=== PATIENT | female | born 1990 | race African-American/Black ===

== ENCOUNTER 2016-12-20 12:54 | Emergency (ER) | payer OTHER ==
[~2016-12-20] VITALS: Ht 160 cm; Wt 79.5 kg
[2016-12-20 13:15] VITALS: BP 105/62
--- NOTE | 2016-12-20 14:08 | PHYS DOC ---
General Chief Complaint: MEDICATION REFILL Stated Complaint: MEDICATION REFILL Time Seen by MD: 13:03 Source: patient Exam Limitations: no limitations Problems: History of Present Illness Initial Comments This is a 26-year-old female with history of anxiety and bipolar disorder who comes to the ED requesting refill. Patient states that she just moved here and has an appointment to establish with a primary care next week. She has an empty prescription bottle for Paxil 20 mg she says she has taken for years. She has been out of medication for several days and is complaining of lethargy, headache, vision changes. This is happened in the past when she has run out of medication and she has, hoping we would refill her until she can get in with her new doctor. ED vital signs are stable Timing/Duration: 24 hours, getting worse Severity: moderate Modifying Factors: improves with medication (L) Associated Symptoms: headaches, malaise, other Allergies: Coded Allergies: No Known Drug Allergies (Unverified , 12/20/16) Past Medical History Medical History: other (anxiety, bipolar, depression) Surgical History: noncontributory Social History Smoker: cigarettes Alcohol: none Drugs: none Review of Systems Constitutional: denies chills, denies diaphoresis, denies fever, malaise EENTM: see HPI Respiratory: denies cough, denies shortness of breath, denies wheezing Cardiovascular: denies chest pain, denies palpitations, denies syncope Gastrointestinal: denies diarrhea, denies nausea, denies vomiting Genitourinary: denies dysuria, denies frequency, denies hematuria Musculoskeletal: denies back pain, denies joint swelling, denies neck pain Psychiatric/Neurological: see HPI Physical Exam General Appearance: no apparent distress, obese Eyes: bilateral eye normal inspection, bilateral eye PERRL, bilateral eye EOMI Ear, Nose, Throat: hearing grossly normal, normal ENT inspection Neck: non-tender, supple Respiratory: normal breath sounds, no respiratory distress Extremities: normal range of motion, non-tender 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 She was advised to stop smoking. I discussed medication refills and the emergency department. Patient is aware that refills were not routinely given in the emergency Department but due to withdrawal symptoms we'll refill her until she can get in with her doctor. She agrees to follow-up with her new doctor next week as scheduled. Departure Time of Disposition: 14:06 Disposition: 01 HOME, SELF-CARE Diagnosis: serotonin syndrome, bipolar/anxiety history Condition: STABLE Patient Instructions: Serotonin Syndrome Additional Instructions: Prescription: Paxil 20 mg quantity 7 Follow-up and establish with your new doctor as scheduled. Return to ED with new or changing symptoms. ARTEM ROSENBAUM DO Dec 20, 2016 14:08
[2016-12-20] MEDS ORDERED: PARO20TA99 PO (14:09)
== END 2016-12-20 14:16 | disposition home or self-care (01) ==
LOC: ER 12:54
DX: G25.79 Other drug induced movement disorders (principal); F31.9 Bipolar disorder, unspecified; F41.9 Anxiety disorder, unspecified; F17.210 Nicotine dependence, cigarettes, uncomplicated
CPT/HCPCS: 99283

== ENCOUNTER 2020-06-14 15:19 | Emergency (ER) | payer MEDICAID, OTHER ==
[~2020-06-14] VITALS: Ht 160 cm; Wt 65.9 kg
[~2020-06-14 15:19] MED LIST: PARO20TA99 PO
[2020-06-14 15:30] VITALS: BP 116/77
[2020-06-14] MEDS ORDERED: KETOROLAC 15 MG/ML VIAL. IVP ONE (15:45)
[2020-06-14] MEDS ORDERED: IV NORMAL SALINE 1,000ML 1,000 ML IV ONE (15:45)
[2020-06-14 16:30] LABS: BASO % 1 % (0-3); EOS # 0.3 x10^3/uL (0.0-0.7); EOS % 4 % (0-3); HEMATOCRIT 24.9 % (36.0-47.0); HEMOGLOBIN 7.1 g/dL (12.0-15.5); LYMPH # 1.5 x10^3/uL (1.0-4.8); LYMPH % 16 % (24-48); MEAN CORPUSCULAR HEMOGLOBIN 16 pg (25-35); MEAN CORPUSCULAR HGB CONC 29 g/dL (31-37); MEAN CORPUSCULAR VOLUME 57 fL (79-100); MONO # 0.5 x10^3/uL (0.0-1.1); MONO % 6 % (0-9); NEUT # 7.1 x10^3uL (1.8-7.7); NEUT % 74 % (31-73); PLATELET COUNT 230 x10^3/uL (140-400); RED BLOOD COUNT 4.34 x10^6/uL (3.50-5.40); RED CELL DISTRIBUTION WIDTH 21.7 % (11.5-14.5); WHITE BLOOD COUNT 9.5 x10^3/uL (4.0-11.0)
[2020-06-14 16:42] LABS: CALCIUM 8.7 mg/dL (8.5-10.1); CREATININE 0.7 mg/dL (0.6-1.0); GFR 119.7
[2020-06-14 16:48] LABS: ALBUMIN 3.6 g/dL (3.4-5.0); ALBUMIN/GLOBULIN RATIO 0.9 (1.0-1.7); TOTAL BILIRUBIN 0.4 mg/dL (0.2-1.0); TOTAL PROTEIN 7.5 g/dL (6.4-8.2)
[2020-06-14] MEDS ORDERED: IRON15TA3 PO (17:06)
--- NOTE | 2020-06-14 17:06 | PHYS DOC ---
Past History Past Medical History: Anxiety, Bipolar, Depression Past Surgical History: No Surgical History Alcohol Use: Occasionally Drug Use: None General Adult EDM: Chief Complaint: HEADACHE HPI: HPI: Patient is a 30-year-old female coming with 3 days of bandlike headache. States the pain is pressure-like. Denies any vision changes, photophobia, nausea vomiting, fevers, neck pain or stiffness. Patient does not have his history of headaches but says she has been congested recently. Denies any recent or remote history of head trauma. Has not taken anything at home. Patient states she is had decreased p.o. intake and not been drinking many fluids today. Review of Systems: Review of Systems: All other systems within normal limits except for as noted in the HPI Current Medications: Current Meds: Current Medications Medications (Trade) Dose Ordered Sig/Jorgito Start Time Stop Time Status Last Admin Dose Admin Ketorolac Tromethamine (Toradol 15mg Vial) 15 mg 1X ONCE 06/14/20 15:45 06/14/20 15:58 DC 06/14/20 15:54 15 MG Sodium Chloride 1,000 ml @ 1,000 mls/hr 1X ONCE 06/14/20 15:45 06/14/20 16:44 DC 06/14/20 15:54 1,000 MLS/HR Allergies: Allergies: Allergies Coded Allergies Type Severity Reaction Last Updated Verified No Known Drug Allergies 12/20/16 No Physical Exam: PE: Constitutional: Well developed, well nourished, no acute distress, non-toxic appearance. [] HENT: Normocephalic, atraumatic, bilateral external ears normal, nose normal. [] Eyes: PERRLA, EOMI, conjunctiva normal, no discharge. [] Neck: No rigidity, supple, no stridor. [] Cardiovascular: Regular rate and rhythm, brisk cap refill [] Lungs & Thorax: Non labored symmetric respirations, no tachypnea or respiratory distress [] Abdomen: Soft, nondistended. Skin: Warm, dry, no erythema, no rash. [] Back: Unremarkable Extremities: No deformities, range of motion grossly intact, no lower extremity edema [] Neurologic: Alert and oriented X 3, no focal deficits noted, cranial nerves intact. [] Psychologic: Affect normal, judgement normal, mood normal. [] Current Patient Data: Labs: Laboratory Tests Test 06/14/20 15:56 White Blood Count 9.5 x10^3/uL (4.0-11.0) Red Blood Count 4.34 x10^6/uL (3.50-5.40) Hemoglobin 7.1 g/dL (12.0-15.5) L Hematocrit 24.9 % (36.0-47.0) L Mean Corpuscular Volume 57 fL (79-100) L Mean Corpuscular Hemoglobin 16 pg (25-35) L Mean Corpuscular Hemoglobin Concent 29 g/dL (31-37) L Red Cell Distribution Width 21.7 % (11.5-14.5) H Platelet Count 230 x10^3/uL (140-400) Neutrophils (%) (Auto) 74 % (31-73) H Lymphocytes (%) (Auto) 16 % (24-48) L Monocytes (%) (Auto) 6 % (0-9) Eosinophils (%) (Auto) 4 % (0-3) H Basophils (%) (Auto) 1 % (0-3) Neutrophils # (Auto) 7.1 x10^3uL (1.8-7.7) Lymphocytes # (Auto) 1.5 x10^3/uL (1.0-4.8) Monocytes # (Auto) 0.5 x10^3/uL (0.0-1.1) Eosinophils # (Auto) 0.3 x10^3/uL (0.0-0.7) Basophils # (Auto) 0.0 x10^3/uL (0.0-0.2) Sodium Level 142 mmol/L (136-145) Potassium Level 4.0 mmol/L (3.5-5.1) Chloride Level 105 mmol/L (98-107) Carbon Dioxide Level 25 mmol/L (21-32) Anion Gap 12 (6-14) Blood Urea Nitrogen 15 mg/dL (7-20) Creatinine 0.7 mg/dL (0.6-1.0) Estimated GFR (Cockcroft-Gault) 119.7 BUN/Creatinine Ratio 21 (6-20) H Glucose Level 82 mg/dL (70-99) Calcium Level 8.7 mg/dL (8.5-10.1) Total Bilirubin Pending Aspartate Amino Transferase (AST) Pending Alanine Aminotransferase (ALT) Pending Alkaline Phosphatase Pending Total Protein Pending Albumin Pending Albumin/Globulin Ratio Pending Vital Signs: Vital Signs Date Time Temp Pulse Resp B/P (MAP) Pulse Ox O2 Delivery O2 Flow Rate FiO2 06/14/20 15:30 97.9 86 18 116/77 (90) 100 EKG: EKG: [] Radiology/Procedures: Radiology/Procedures: [] Heart Score: Risk Factors: Risk Factors: DM, Current or recent (<one month) smoker, HTN, HLP, family history of CAD, obesity. Risk Scores: Score 0 - 3: 2.5% MACE over next 6 weeks - Discharge Home Score 4 - 6: 20.3% MACE over next 6 weeks - Admit for Clinical Observation Score 7 - 10: 72.7% MACE over next 6 weeks - Early Invasive Strategies Course & Med Decision Making: Course & Med Decision Making Pertinent Labs and Imaging studies reviewed. (See chart for details) [] Dragon Disclaimer: Dragon Disclaimer: This electronic medical record was generated, in whole or in part, using a voice recognition dictation system. Departure Departure: Impression: Primary Impression: Headache Additional Impression: Microcytic anemia Disposition: 01 DC HOME SELF CARE/HOMELESS Condition: STABLE Referrals: JUAN ZUÑIGA MD (PCP) Patient Instructions: Anemia, FAQs Scripts Iron,Carbonyl (IRON CHEWS) 15 Mg Tab.chew 2 TAB PO BID for anemia for 30 Days, #120 TAB 0 Refills Prov: KALA MERCEDES MD 06/14/20 KALA MERCEDES MD Jun 14, 2020 17:06
[2020-06-14 21:19] LABS: ANISOCYTOSIS MOD; HYPOCHROMIA MARKED; MICROCYTOSIS MARKED
[2020-06-14 21:20] LABS: PLT ESTIMATE ADEQUATE (ADEQUATE)
== END 2020-06-14 17:30 | disposition home or self-care (01) ==
LOC: ER 15:19
DX: D50.9 Iron deficiency anemia, unspecified (principal); R51.9 Headache, unspecified; F41.9 Anxiety disorder, unspecified; F31.9 Bipolar disorder, unspecified
CPT/HCPCS: 36415; 80053; 85025; 96361; 96374; 99283; J1885; J7030

== ENCOUNTER 2020-07-03 14:49 | Emergency (ER) | payer MEDICAID ==
[~2020-07-03] VITALS: Ht 160 cm; Wt 66.0 kg
[~2020-07-03 14:49] MED LIST changes: +IRON15TA3 PO
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
[2020-07-03] MEDS ORDERED: HYDROcodone/APAP 5/325MG 1 TAB TABLET PO ONE (15:15)
--- NOTE | 2020-07-03 15:43 | RAD ---
XR HAND_RIGHT 3 VIEWS History: Reason: BLUNT TRAUMA, HAND PAIN / Spl. Instructions: / History: Comparison: None. Technique: 3 views of the right hand Findings: There is no evidence for fracture. Alignment is normal. No destructive osseous lesions are seen. Joint spaces are preserved. Soft tissues are normal. Impression: 1. No acute osseous abnormality of the right hand. Electronically signed by: Lamin Phan MD (07/03/2020 3:41 PM) [facility]
[2020-07-03] MEDS ORDERED: IBUP600T16 PO (16:06)
== END 2020-07-03 16:15 | disposition home or self-care (01) ==
LOC: ER 14:49
DX: S60.221A Contusion of right hand, initial encounter (principal); F41.9 Anxiety disorder, unspecified; F32.9 Major depressive disorder, single episode, unspecified; Y08.89XA Assault by other specified means, initial encounter; Y93.89 Activity, other specified; Y92.89 Other specified places as the place of occurrence of the external cause; Y99.8 Other external cause status
CPT/HCPCS: 73130; 99283

== ENCOUNTER 2021-05-17 19:21 | Emergency (ER) | payer MEDICAID ==
[~2021-05-17] VITALS: Ht 160 cm; Wt 82.1 kg
[~2021-05-17 19:21] MED LIST changes: +IBUP600T16 PO
--- NOTE | 2021-05-17 19:41 | PHYS DOC ---
Past History Past Medical History: No Pertinent History Past Surgical History: No Surgical History Alcohol Use: Rarely Drug Use: None General Adult HPI: HPI: ".. I ve been vomiting tonight... twice... No bad food.. ..just sick.... I can't be ..." Patient is a 31 year old female who presents with above hx anbd complaints of nausea and vomiting x2 tonight. No recent travel. No specific ill contacts. No intake bad food. Has not gotten flu vaccination. Has not gotten Taboola. No specific ill contacts. No histamine suppression. Patient is accompanied with her mother. Review of Systems: Review of Systems: Constitutional: Denies fever or chills Eyes: Denies change in visual acuity HENT: Denies nasal congestion or sore throat Respiratory: Denies cough or shortness of breath Cardiovascular: Denies chest pain or edema GI: Complains of nausea, vomiting,. Denies bloody stools or diarrhea : Denies dysuria Musculoskeletal: Denies back pain or joint pain Integument: Denies rash Neurologic: Denies headache, focal weakness or sensory changes Endocrine: Denies polyuria or polydipsia Lymphatic: Denies swollen glands Psychiatric: Denies depression or anxiety Family History: Family History: See nursing for home meds Current Medications: Current Meds: See nursing for home meds Allergies: Allergies: Allergies Coded Allergies Type Severity Reaction Last Updated Verified No Known Drug Allergies 12/20/16 No Physical Exam: PE: Constitutional: Moderate acute distress, non-toxic appearance. [] HENT: Normocephalic, atraumatic, bilateral external ears normal, oropharynx moist, no oral exudates, nose normal. [] Eyes: PERRLA, EOMI, conjunctiva normal, no discharge. [] Neck: Normal range of motion, no tenderness, supple, no stridor. [] Cardiovascular:Heart rate regular rhythm, no murmur [] Lungs & Thorax: Bilateral breath sounds equal apex auscultation [] Abdomen: Bowel sounds hyperactive, soft, epigastric tenderness, no masses, no pulsatile masses. [] Obese. No focal areas of rebound Skin: Warm, dry, no erythema, no rash. [] Back: No tenderness, no CVA tenderness. [] Extremities: No tenderness, no cyanosis, no clubbing, ROM intact, no edema. [] No psoas sign. Neurologic: Alert and oriented X 3, normal motor function, normal sensory function, no focal deficits noted. [] Psychologic: Affect anxious,, judgement normal, mood normal. [] EKG: EKG: [] Radiology/Procedures: Radiology/Procedures: [] Heart Score: C/O Chest Pain: N/A Risk Factors: Risk Factors: DM, Current or recent (<one month) smoker, HTN, HLP, family history of CAD, obesity. Risk Scores: Score 0 - 3: 2.5% MACE over next 6 weeks - Discharge Home Score 4 - 6: 20.3% MACE over next 6 weeks - Admit for Clinical Observation Score 7 - 10: 72.7% MACE over next 6 weeks - Early Invasive Strategies Course & Med Decision Making: Course & Med Decision Making Pertinent Labs and Imaging studies reviewed. (See chart for details) Stay on clear fluid diet only for the next 48 hours. Follow-up pending PCR test for COVID. Clear fluid diet only. No solids. No milk products. Must allow bowel rest. Take Zofran 8 mg up to 4 times a day. Follow-up with primary. Return if any concerns. Initial flu and rapid COVID negative Impression: 1. Nausea and vomiting 2. Marijuana Use 3. Acute gastroenteritis [] Dragon Disclaimer: Dragon Disclaimer: This electronic medical record was generated, in whole or in part, using a voice recognition dictation system. Departure Departure: Referrals: JUAN ZUÑIGA MD (PCP) Scripts Ondansetron (ONDANSETRON ODT) 8 Mg Tab.rapdis 8 MG PO QIDPRN PRN for NAUSEA/VOMITING, #30 TAB Prov: TOMAS GALICIA MD 05/17/21 Zbigniew Disclaimer This chart was dictated in whole or in part using Voice Recognition software in a busy, high-work load, and often noisy Emergency Department environment. It may contain unintended and wholly unrecognized errors or omissions. Dragon Disclaimer This chart was dictated in whole or in part using Voice Recognition software in a busy, high-work load, and often noisy Emergency Department environment. It may contain unintended and wholly unrecognized errors or omissions. TOMAS GALICIA MD May 17, 2021 19:40
[2021-05-17 19:45] VITALS: BP 128/79
[2021-05-17] MEDS: ONDANSETRON ODT 4 MG TAB.RAPDIS PO ONE (20:32)
[2021-05-17 21:03] LABS: BARBITURATES NEG (NEG); BENZODIAZEPINES NEG (NEG); CANNABINOIDS POS (NEG); COCAINE NEG (NEG); METHADONE NEG (NEG); OPIATES NEG (NEG); PHENCYCLIDINE NEG (NEG)
[2021-05-17 21:10] LABS: AMPHETAMINE/METHAMPHETAMINE NEG (NEG)
[2021-05-17 21:22] LABS: INFLUENZA A PATIENT NEGATIVE (NEGATIVE); INFLUENZA B PATIENT NEGATIVE (NEGATIVE)
[2021-05-17 21:35] LABS: BILIRUBIN,URINE NEG (NEG); CLARITY,URINE CLEAR; COLOR,URINE YELLOW; GLUCOSE,URINE NEG (NEG); NITRITE,URINE NEG (NEG); WBC,URINE 0 /HPF (0-4)
[2021-05-17 21:36] LABS: BACTERIA,URINE 0 /HPF (0-FEW); SQUAMOUS EPITHELIAL CELL,UR MOD /LPF
[2021-05-17] MEDS ORDERED: ONDA8TAB15 PO (22:12)
== END 2021-05-17 22:16 | disposition home or self-care (01) ==
LOC: ER 19:21
DX: K52.9 Noninfective gastroenteritis and colitis, unspecified (principal)
CPT/HCPCS: 80307; 81001; 81025; 87804; 99283; C9803; Q0162; U0003